=== PATIENT | female | born 1980 | race Caucasian/White ===

== ENCOUNTER 2016-10-03 11:05 | Emergency (ER) | payer OTHER ==
[~2016-10-03] VITALS: Ht 165.1 cm; Wt 59.0 kg
[~2016-10-03 11:05] MED LIST: Ascorbic Acid PO; FERR-83 PO; IBUP-1827 PO; OXYC1TAB24 PO
[2016-10-03 11:07] VITALS: BP 135/82; PULSE 74; RESP 16; O2SAT 100
--- NOTE | 2016-10-03 11:36 | ED.REPORT ---
HPI-Back Pain Under 40 Date of Service Oct 03, 2016 ED Provider: Steffen Gregg PA-C Otherwise healthy 36-year-old female presents with a chief complaint of low back pain. Reports a 2-1/2 week history of intermittent back pain, worsening significantly over the last 3 days. She cannot recall specific injury. Describes the pain as 7/10 ache radiating around both eyes. She describes cramping sensation in bilateral thighs. Denies numbness, tingling, weakness or pain in lower extremity. Denies fever, DM, HIV, organ transplant, immunosuppression, recent surgery, recent infection, history of back surgery, surgical implants and IV drug use. Denies bowel/bladder dysfunction and saddle anesthesia. Denies dysuria, hematuria, frequency. Denies chest pain, palpitations. Reports a recent UA that was positive for protein, which she was instructed to follow up on with her primary care provider. Referred by urgent care after an episode of diaphoresis and lightheadedness in clinic, which the patient states has resolved. Nursing Notes Stated Complaint: BACK PAIN Chief Complaint: Back Pain or Injury Nursing Notes Reviewed: Yes Allergies: Coded Allergies: No Known Allergies (Unverified , 12/04/14) Verified 04/16/13 Scheduled ([Ascorbic Acid]) 500 MG TABLET 500 MG PO BIDWM Ferrous Sulfate (Ferrous Sulfate) 325 Mg Tablet 325 MG PO BIDWM Scheduled PRN Hydrocodone-Acetaminophen 5-325 mg (Hydrocodone-Acetaminophen 5-325 mg) 1 Each Tablet 1-2 TABLET PO QID PRN PRN For Pain Ibuprofen (Ibuprofen) 600 Mg Tablet 600 MG PO Q6H PRN PRN For Mild Pain oxyCODONE-Acetaminophen 5-325 mg (oxyCODONE-Acetaminophen 5-325 mg) 1 Tab Tablet 1-2 TAB PO Q4H PRN PRN For Pain General Time Seen by MD: 11:21 Chief Complaint Lumbar pain Sudden in Onset?: No Past Medical History Smoking History Never Smoker Review of Systems Negative unless stated otherwise in history of present illness Physical Exam General: Well appearing, well developed, well nourished, no acute distress. Head: Atraumatic, normocephalic. Eyes: No scleral icterus or injection. No discharge. Vision grossly intact. ENT: Voice clear, hearing grossly intact. Respiratory: Regular rate and rhythm. Breath sounds present, clear to auscultation and equal bilaterally. No respiratory distress. No increased work of breathing, speaks in complete sentences. Cardiovascular: Regular rate and rhythm, without murmur, gallop or rub. No pedal edema. Gastrointestinal: Abdomen flat and non-tender without guarding or rebound. Bowel sounds normoactive. No masses detected. Skin: Warm and dry. Back: Normal to inspection, negative midline spinous process tenderness, negative SI tenderness, negative CVA tenderness. Reduced range of motion. Neurological: Normal gait, toe walk, heel walk, Romberg. Hip flexion, knee extension, ankle dorsiflexion and plantarflexion strength 5/5 B/L. Patellar and Achilles reflexes present and equal B/L. Sensation to sharp touch intact at medial leg, dorsal foot and lateral foot B/L. negative straight leg raise, negative cross straight leg raise. Psychological: Alert and oriented. Speech appropriate, linear and logical. Behavior appropriate. Initial Vital Signs Vital Signs (First) Date Time Temp Pulse Resp B/P Pulse Ox O2 Delivery O2 Flow Rate FiO2 10/03/16 11:07 36.6 74 16 135/82 100 Room Air Mildly elevated blood pressure Interpretation & Diagnostics Lab Results Interpretation Result Diagram: 10/03/16 1144 10/03/16 1144 Test 10/03/16 11:44 10/03/16 12:12 White Blood Count 10.7th/mm3 (3.8-10.1) Red Blood Count 4.42mil/mm3 (3.90-5.20) Hemoglobin 12.4g/dL (12.0-15.6) Hematocrit 38.3% (35.0-46.0) Mean Corpuscular Volume 86.7fL (81-100) Mean Corpuscular Hemoglobin 28.1pg (27.0-35.0) Mean Corpuscular Hemoglobin Concent 32.4% (32.0-37.0) Red Cell Distribution Width 13.3% (12.3-15.4) Platelet Count 275bil/L (150-400) Neutrophils (%) (Auto) 77.9% (40-74) Lymphocytes (%) (Auto) 15.0% (14-46) Monocytes (%) (Auto) 5.8% (4-12) Eosinophils (%) (Auto) 0.7% (0-5) Basophils (%) (Auto) 0.4% (0-3) Sodium Level 139mEq/L (134-144) Potassium Level 4.2mEq/L (3.5-5.2) Chloride Level 104mEq/L (97-108) Carbon Dioxide Level 22mmol/L (18-29) Blood Urea Nitrogen 13mg/dL (6-20) Creatinine 0.75mg/dL (0.57-1.00) Estimat Glomerular Filtration Rate 125mL/min (>59) Glucose Level 123mg/dL (60-99) Calcium Level 8.9mg/dL (8.5-10.1) Total Bilirubin 0.7mg/dL (0.0-1.2) Aspartate Amino Transf (AST/SGOT) 17U/L (0-50) Alanine Aminotransferase (ALT/SGPT) 13U/L (0-32) Alkaline Phosphatase 42U/L (25-150) Total Protein 6.7g/dL (6.4-8.4) Albumin 4.1g/dL (3.4-5.0) Urine Color Yellow (YELLOW) Urine Appearance Hazy (CLEAR,HAZY) Urine pH 6.0 (5.0-8.0) Urine Specific [place] 1.025 (1.003-1.035) Urine Protein 100mg/dL (NEG,TRACE) Urine Glucose (UA) Negativemg/dL (NEGATIVE) Urine Ketones Negativemg/dL (NEGATIVE) Urine Occult Blood Trace (NEGATIVE) Urine Nitrite Negative (NEGATIVE) Urine Bilirubin Negative (NEGATIVE) Urine Urobilinogen Normalmg/dL (NORMAL) Urine Leukocyte Esterase Negative (NEGATIVE) Urine RBC 0-2/hpf (0-2) Urine WBC 0-5/hpf (0-5) Urine Epithelial Cells Occasional/hpf (NONE-MOD) Urine Crystals None seen (NONE SEEN) Urine Bacteria Moderate/hpf (NONE-FEW) Urine Hyaline Casts None/lpf (NONE) Urine Granular Casts None seen (NONE SEEN) Urine Waxy Casts None seen (NONE SEEN) Urine Red Blood Cell Casts None seen (NONE SEEN) Urine White Blood Cell Casts None seen (NONE SEEN) Urine Mucus Present (None Seen) Urine Trichomonas None seen (NONE SEEN) Urine Yeast None (NONE SEEN) Urinalysis Comment None Urine Culture Reflexed Indicated Re-Eval/Medical Decision Med Decision/Clinical Course 36-year-old female presenting with chief complaint of low back pain, referred from urgent care after an episode of diaphoresis and lightheadedness in clinic. She reports a 2-1/2 week history of intermittent low back pain, described as crampy and radiating to bilateral thighs. Denies chest pain, palpitations, shortness of breath, wheezing. History is without red flag symptoms for acute disc herniation, cauda equina, infection, hematoma, trauma, pyelonephritis, nephrolithiasis, AAA, cancer. On physical examination, patient has normal vital signs, back normal to inspection and nontender, normal neurological examination. Abdomen is nontender without masses appreciated. CMP is normal, CBC reveals extremely mild leukocytosis at 10.7 with left shift. Urinalysis is positive for bacteria, negative for white blood cells, leukocyte esterase, nitrate. Trace blood, 100 protein. Repeat vital signs after 2 hours in the department remained normal. I discussed the case with Dr. Lan. We believe this is musculoskeletal back pain, stable and safe to be discharged home. We are reassured regarding possibility of a cardiac or hemorrhagic cause of her diaphoresis and lightheadedness. Blood tests are reassuring against anemia, electrolyte imbalance. Urinalysis does not suggest pyelonephritis or nephrolithiasis. Patient reports some improvement with ketorolac in the emergency department. Feels prepared for discharge to home. Advise regarding [id number] analgesia, but had a small amount of hydrocodone supplement with precautions. Advised regarding primary care follow-up, provided emergency return precautions. Patient verbalized understanding of, and consent to, the plan. Discharge & Departure Impression: Primary Impression: Low back pain Chronicity: acute Back pain laterality: midline Sciatica presence: without sciatica Qualified Code: M54.5 - Low back pain Disposition: Home All VS Reviewed: Yes Condition: Stable Patient Instructions: Acute Low Back Pain (ED) Additional Instructions: Evaluation in the emergency department for lower back pain. History and physical are reassuring for emergent neurological condition such as epidural abscess or cauda equina syndrome. History does not suggest that this is likely to be a spinal fracture. Your neurological examination is normal, indicating there is no damage to the nerves in your back. I see no indication to perform imaging tests at this time. Treatment is largely symptomatic. Rest is important, especially for the next couple of days, but avoid total bed rest. Reasonable activity as tolerated is the best. The pain is best treated with 600 mg of ibuprofen (Advil, Motrin) every 6 hours , or 1000 mg of acetaminophen (Tylenol) every 6 hours. These drugs can be taken at the same time for more severe pain. I have written a prescription for a small amount of hydrocodone/acetaminophen 5/ 325 mg which can be SUBSTITUTED for the Tylenol to treat more severe pain. Do not take them together, and do not drink alcohol or operate a vehicle within 4 hours of taking this medication. Most of all be patient: 70-90% of people with injuries presenting like yours will resolve within 7 weeks, even without treatment. Follow-up with your primary care provider in the next week or two to be sure your recovery is progressing as expected. Return the emergency department for new or worsening symptoms such as loss of bowel/bladder function, numbness between your legs, new weakness/numbness or high fever. Referrals: NOPCP (PCP) Isaiah Pepper MD (Family) EDSupervising Provider for APC: Kyler Lan MD copies to: Isaiah Pepper MD, Seth PA-C Oct 03, 2016 11:36
[2016-10-03 11:59] LABS: BASOPHILS % (AUTO) 0.4 % (0-3); EOSINOPHILS % (AUTO) 0.7 % (0-5); MONOCYTES % (AUTO) 5.8 % (4-12); Mean Corpuscular Hemoglobin 28.1 pg (27.0-35.0); Mean Corpuscular Volume 86.7 fL (81-100); NEUTROPHILS % (AUTO) 77.9 % (40-74); Platelet Count 275 bil/L (150-400)
[2016-10-03 12:24] LABS: APPEARANCE,URINE HAZY (CLEAR,HAZY); COLOR,URINE YELLOW (YELLOW)
[2016-10-03 12:25] LABS: OCCULT BLOOD,URINE TRACE (NEGATIVE)
[2016-10-03 12:27] LABS: UROBILINOGEN,URINE NORMAL (NORMAL)
[2016-10-03 12:45] VITALS: BP 114/62; PULSE 69; O2SAT 98
[2016-10-03] MEDS ORDERED: HYDR-4003 PO (12:59)
[2016-10-03 13:09] VITALS: BP 127/83; PULSE 79; RESP 19; O2SAT 100
== END 2016-10-03 13:02 | disposition home or self-care (01) ==
LOC: SED 11:11
DX: M54.5 Low back pain (principal)
CPT/HCPCS: 36415; 80053; 81000; 81025; 85025; 87086; 87088; 96372; 99284; J1885